=== PATIENT | female | born 1980 | race Caucasian/White ===

== ENCOUNTER → 2018-08-26 16:03 | Outpatient (CLI) | payer OTHER, SELFPAY ==
[2018-08-30 12:51] LABS: HPV Reflexed? NOT INDICATED
== END ==
PROVIDERS: Visit Provider Obstetrics & Gynecology
DX: Z12.4 Encounter for screening for malignant neoplasm of cervix (principal)
CPT/HCPCS: 88175; G0145

== ENCOUNTER → 2019-01-30 15:45 | Outpatient (CLI) | payer OTHER, SELFPAY ==
[2019-01-30 17:04] LABS: Hematocrit 39.1 % (37-47); Hemoglobin 13.7 g/dl (12.0-15.0); Mean Corpuscular Volume 88.5 fL (81-99); Mean Platelet Vol. 8.7 fl (6.2-12.0); Platelet Count 178 K/mm3 (150-450); RBC Distribution Width CV 12.6 % (11.6-14.6); RBC Distribution Width SD 39.8 fl (35.1-43.9); Red Blood Count 4.42 M/mm3 (4.2-5.4); White Blood Count 7.1 K/mm3 (4.4-11.0)
[2019-01-30 17:07] LABS: Scan Indicated on CBC? Y/N NO
[2019-01-30 17:20] LABS: Thyroid Stim Hormone (TSH) 1.06 uIU/mL (0.358-3.74)
== END ==
PROVIDERS: Visit Provider Obstetrics & Gynecology
DX: N92.0 Excessive and frequent menstruation with regular cycle (principal)
CPT/HCPCS: 36415; 84443; 85027; J7030; A4216

== ENCOUNTER → 2020-10-11 13:33 | Outpatient (CLI) | payer OTHER, SELFPAY ==
[2020-10-13 20:49] LABS: HPV APTIMA, High Risk Negative (Negative)
== END ==
PROVIDERS: Visit Provider Student in an Organized Health Care Education/Training Program
DX: Z12.4 Encounter for screening for malignant neoplasm of cervix (principal)
CPT/HCPCS: 87624; 88175; G0145

== ENCOUNTER → 2021-08-17 11:58 | Outpatient (CLI) | payer OTHER, SELFPAY ==
--- NOTE | 2021-08-17 12:24 | MRI_ITS ---
STUDY: BILATERAL BREAST MR WITHOUT AND WITH CONTRAST REASON FOR EXAM: Female, 41 years old. Family history of breast cancer. Diffuse cystic mastopathy. TECHNIQUE: Multi-sequence multi-echo imaging of both breasts was performed with a dedicated breast coil. T1-weighted and T2-weighted images were performed before the administration of contrast. T1-weighted images were also performed after the administration of IV Yes without complications. COMPARISON: Bilateral mammograms dated 03/01/2021 and 02/17/2016. FINDINGS: RIGHT BREAST: The breast tissue is heterogeneously dense with mild background enhancement. There are no abnormal enhancing masses or areas of non-mass enhancement in the right breast. LEFT BREAST: The breast tissue is heterogeneously dense with mild background enhancement. There are no abnormal enhancing masses or areas of non-mass enhancement in the left breast. There are no enlarged or abnormal lymph nodes. There is no abnormality in the visualized regions of the chest or liver. MRI/Breast Bilateral W/O and W IMPRESSION: No abnormality on the breast MR examination with contrast. Yearly screening mammogram recommended. CATEGORY: BIRADS Category 2: Benign. A letter regarding these results will be sent to the patient by the facility within 30 days. Electronically Signed: Gerald Cortes MD at 10:27 EDT , Service support ,
== END ==
PROVIDERS: PCP Family Medicine; Referring Provider Student in an Organized Health Care Education/Training Program; Visit Provider Student in an Organized Health Care Education/Training Program
DX: N60.12 Diffuse cystic mastopathy of left breast (principal); Z80.3 Family history of malignant neoplasm of breast
CPT/HCPCS: 77049; A9575; A4216; C8908

== ENCOUNTER → 2022-06-20 | Outpatient (CLI) | payer OTHER, SELFPAY ==
[2022-06-27 17:58] LABS: HPV APTIMA, High Risk Negative (Negative)
== END | disposition home or self-care (01) ==
LOC: LABSPEC 14:59
PROVIDERS: PCP Family Medicine; Visit Provider Student in an Organized Health Care Education/Training Program
DX: Z12.4 Encounter for screening for malignant neoplasm of cervix (principal)
CPT/HCPCS: 87624; 88175; G0145

== ENCOUNTER → 2023-07-04 | Outpatient (CLI) | payer OTHER, SELFPAY ==
[2023-07-04 15:48] LABS: Progesterone Level 0.28 ng/mL (See Comment)
[2023-07-04 15:51] LABS: Estradiol 168.1 pg/mL; Follicle Stimulating Hormone 3.8 mIU/mL; Luteinizing Hormone 8.8 mIU/mL; Prolactin 8.9 ng/mL
== END | disposition home or self-care (01) ==
LOC: WOBLAB 14:47
PROVIDERS: PCP Family Medicine; Visit Provider Student in an Organized Health Care Education/Training Program
DX: N93.9 Abnormal uterine and vaginal bleeding, unspecified (principal)
CPT/HCPCS: 36415; 82670; 83001; 83002; 84144; 84146

== ENCOUNTER → 2023-11-09 | Outpatient (CLI) | payer OTHER, SELFPAY ==
--- NOTE | 2023-11-09 12:14 | MRI_ITS ---
EXAM: MR Breast W/ Contrast and W/O Contrast If Included Bilateral W CAD when performed HISTORY: High risk screening TECHNIQUE: Breast MRI was performed with the patient positioned prone in a Siemens Aera 1.5 Vandana magnet. A16 channel dedicated breast coil was utilized. Sequences obtained include: Pre-contrast axial non fat-saturated T1; axial STIR; pre-contrast fat-saturated axial T1; post-contrast fat-saturated axial T1 every 90 seconds for three sequences; and post-contrast high resolution fat-saturated sagittal T1. Subtraction axial images were generated. 14 mL of Clariscan was injected intravenously from a multi-use vial. The study was processed using a Yovigo system to optimize interpretation by generating multiplanar and three dimensional reconstructions, by creating subtraction images from the dynamic pre- and post-contrast data and by providing enhancement kinetic and analytical information. COMPARISON STUDIES: 08/17/2021 FINDINGS: There is heterogeneous fibroglandular tissue with mild background parenchymal enhancement. RIGHT BREAST: There are no abnormal enhancing masses or areas of non-mass enhancement in the right breast. LEFT BREAST: There are no abnormal enhancing masses or areas of non-mass enhancement in the right breast. MRI/Breast Bilateral W/O and W IMPRESSION: RIGHT BREAST: 1. No MR imaging evidence of malignancy LEFT BREAST: 1. No MR imaging evidence of malignancy OVERALL ASSESSMENT: BI-RADS Category 1, negative RIGHT BREAST: LEFT BREAST: RECOMMENDATION: 1. Main intensive routine screening mammography. 2. Annual screening breast MRI Electronically Signed: David Lanza MD at 23:47 EST Reading Location ID and State: [address] [place] [address] Tel , Service support ,
--- OUTSIDE RECORDS SUMMARY | 2023-11-09 12:39 | XMS RPT_ITS | CCD ---
Author Name Unknown Address [email or web address] [place] [address] Organization [facility] Care Team Providers Care Ice Cream Server Name Role Phone URIEL MORRIS MD Consulting Unavailable EDD VINCENT MD Admitting Unavailable EDD VINCENT MD Primary Care Unavailable EDD VINCENT MD Attending Unavailable PROVIDER, UNKNOWN Consulting Unavailable PROVIDER, UNKNOWN Consulting Unavailable PROVIDER, UNKNOWN Consulting Unavailable BRYN HSU NP Admitting Unavailable BRYN HSU NP Primary Care Unavailable BRYN HSU NP Attending Unavailable URIEL MORRIS MD Consulting Unavailable EDD VINCENT MD Referring Unavailable PROVIDER, UNKNOWN Consulting Unavailable PROVIDER, UNKNOWN Consulting Unavailable PROVIDER, UNKNOWN Consulting Unavailable BRYN HSU NP Primary Care Unavailable BRYN HSU NP Attending Unavailable URIEL MORRIS MD Consulting Unavailable BRYN HSU NP Admitting Unavailable PROVIDER, UNKNOWN Consulting Unavailable PROVIDER, UNKNOWN Consulting Unavailable PROVIDER, UNKNOWN Consulting Unavailable ANN MORRIS DO Admitting Unavailable ANN MORRIS DO Primary Care Unavailable ANN MORRIS DO Attending Unavailable URIEL MORRIS MD Consulting Unavailable PROVIDER, UNKNOWN Consulting Unavailable PROVIDER, UNKNOWN Consulting Unavailable PROVIDER, UNKNOWN Consulting Unavailable Kal Morris MD Unavailable Mode Ye MD Primary Care Provider Unavail able Harman Siu CGC Unavailable Unavailable Mode YE Primary Care Unavailable HARMAN SIU Attending Unavailable Mode YE Referring Unavailable HARMAN SIU Attending Unavailable KAL MORRIS Referring Unavailable Mode YE Primary Care Unavailable Mode YE Primary Care Unavailable AZEB POWERS Referring Unavailable AZEB POWERS Attending Unavailable Problems Active Problems Problem Classification Problem Date Documented Da te Episodic/Chronic Other endocrine disorders (3 sources) Estrogen excess; Translations: [Estrogen excess] Onset: 02-17-2022 Chronic Residual codes; unclassified (1 source) Family history of breast cancer; Translations: [Family history of malignant neoplasm of breast] 08-30-2023 Episodic Residual codes; unclassified (1 source) Family history of cancer of colon; Translations: [Family history of malignant neoplasm of digestive organs] 08-30-2023 Episodic Residual codes; unclassified (1 source) Family history of malignant neoplasm of ovary; Translations: [Family history of malignant neoplasm of ovary] 08-30-2023 Episodic Thyroid disorders (1 source) Other specified hypothyroidism; Translations: [Other specified hypothyroidism] Onset: 02-17-2022 Chronic Past or Other Problems Problem Classification Problem Date Documented Da te Episodic/Chronic Malaise and fatigue (1 source) Other fatigue; Translations: [Other fatigue] Onset: 02-17-2022 Episodic Results Test Name Value Interpretation Reference Range Facil ity Encounters Encounter Date Encounter Type Care Provider Facility Start: 09-28-2023 End: 09-28-2023 ambulatory [facility] Start: 08-30-2023 End: 08-31-2023 ambulatory [facility] Start: 08-30-2023 End: 08-30-2023 ambulatory HARMAN Chun ALEXANDRA [facility] Start: 08-30-2023 End: 08-30-2023 Subsequent hospital visit by physician Azeb Powers MD Work Phone: [facility] Plan of Treatment Date Care Activity Detail Author Start: 09-28-2023 End: 09-28-2023 Professional / ancillary services management 09/28/2023 2:30 PM EST Telehealth Ancillary [place] [place] [address] Harman Siu, [facility] [place] [address] [facility] Start: 06-29-2023 FLU (#1) FLU (#1) [facility] Start: 11-07-2021 COVID-19 (3 - Booste r for Pfizer series) COVID-19 (3 - Booster for Pfizer series) [facility] Start: 2000 Microscopic observat ion [Identifier] in Cervix by Cyto stain Pap Smear [facility] Start: 1995 MenB (1 of 2 - MenB 2-Dose Series Bexsero) MenB (1 of 2 - MenB 2-Dose Series Bexsero) [facility] Start: 1986 Tetanus Diphtheria a nd Pertussis Vaccines (1 - Tdap) Tetanus Diphtheria and Pertussis Vaccines (1 - Tdap) [facility] Start: 1980 MMR (1 of 1 - Standa rd series) MMR (1 of 1 - Standard series) [facility] Start: 1980 Varicella (1 of 2 - 2-dose childhood series) Varicella (1 of 2 - 2-dose childhood series) [facility] Start: 1979 Hepatitis B (1 of 3 - 3-dose series) Hepatitis B (1 of 3 - 3-dose series) [facility] Genetic Sendout: Com A2B Hereditary Cancers Panel Genetic Sendout: Common Hereditary Cancers Panel Lab Routine Family history of breast cancer Family history of colon cancer Family history of ovarian cancer 08/30/2023 3:38 PM EDT [facility] Work Phone: Payers Date Payer Category Payer Unknown [employer] [id number] 2021-Present [address] [place] [address] [id number] 1979 Unknown [id number] 1979 Unknown [id number] 1979 Unknown [id number] 1979 Unknown [id number] 1979 Unknown [id number] 1979 Unknown [id number] 1979 Unknown [id number] Unknown [id number] Social History Date Type Detail Facility Tobacco smoking stat [facility] Tobacco smoking consumption unknown [facility] Start: 1979 Sex Assigned At Not on file [facility] Gender identity Not on file [facility] Evaluation note Note Date & Type Note Facility documented in this encounter [facility] Summary Purpose Family History No Family History Records FoundNo Family History Records FoundNo Family History Records FoundNo Family History Records Found Advance Directives No Advanced Directives Records FoundNo Advanced Directives Records FoundNo Advanced Directives Records FoundNo Advanced Directives Records Found Additional Source Comments INFORMATION SOURCE (unrecogn ized section and content) DATE CREATED AUTHOR AUTHOR'S ORGANIZ ATION 08/26/2022 [facility] ([place]) DATE CREATED AUTHOR AUTHOR'S ORGANIZ ATION 02/09/2023 [facility] DATE CREATED AUTHOR AUTHOR'S ORGANIZ ATION 10/03/2023 [facility] Reason for Visit (unrecogniz ed section and content) Referral ID Status Reason Start Date Expiration Date V isits Requested Visits Authorized [id number] [facility] Required 08/30/2023 08/29/2024 1 1 Care Teams (unrecognized sec tion and content) FOR RECORDS PERTAINING TO PATIENTS WHO ARE OR HAVE BEEN ENROLLED IN A CHEMICAL DEPENDENCY/SUBSTANCEABUSE PROGRAM, SOME INFORMATION MAY BE OMITTED. This clinical summary was aggregated from multiple sources. Caution should be exercised in using it in the provision of clinical care. This summary normalizes information from multiple sources, and as a consequence, information in this document may materially change the coding, format and clinical context of patient data. In addition, data may be omitted in some cases. CLINICAL DECISIONS SHOULD BE BASED ON THE PRIMARY CLINICAL RECORDS. [facility] [employer] [facility]. provides no warranty or guarantee of the accuracy or completeness of information in this document.
== END | disposition home or self-care (01) ==
PROVIDERS: PCP Family Medicine
DX: Z15.89 Genetic susceptibility to other disease (principal)
CPT/HCPCS: 77049; A9575; A4216; C8908